=== PATIENT | female | born 1965 | race Two or more races ===

== ENCOUNTER → 2024-10-27 | Outpatient (CLI) | payer MEDICARE, MEDICAID, SELFPAY ==
--- NOTE | 2024-10-27 12:37 | XR_ITS ---
Examination: Thoracic spine 3 views Technique one AP lateral coned lateral upper dorsal spine 3 views Exam date and time: October 27, 2024 1300 hours INDICATIONS: Upper back pain 5 years. FINDINGS: Significant osteopenia Lower thoracic levoscoliosis 13 degrees No thoracic fracture Moderate diffuse thoracic degenerative disc disease IMPRESSION: Moderate diffuse thoracic degenerative disc disease
--- NOTE | 2024-10-27 12:37 | XR_ITS ---
EXAMINATION: Cervical spine, 5 views Technique: Cervical spine AP, AP odontoid, lateral, bilateral obliques, 5 views Exam date and time: October 27, 2024 at 1243 hours INDICATIONS: Neck pain beginning 5 years ago. FINDINGS: Straightening normal cervical doses No cervical fracture Moderate to advanced degenerative disc disease C4-C5, C5-C6, C6-C7 with mild to moderate bilateral neural foraminal stenosis at these levels primarily on the right side Intact odontoid IMPRESSION: Moderate to advanced degenerative disc disease C4-C5, C5-C6, C6-C7
== END | disposition home or self-care (01) ==
PROVIDERS: PCP Nurse Practitioner Family; Referring Provider Nurse Practitioner Family; Visit Provider Nurse Practitioner Family
DX: M50.321 Other cervical disc degeneration at C4-C5 level (principal); M51.34 Other intervertebral disc degeneration, thoracic region
CPT/HCPCS: 72050; 72070

== ENCOUNTER → 2025-02-01 | Outpatient (CLI) | payer MEDICARE, MEDICAID, SELFPAY ==
--- NOTE | 2025-02-01 07:30 | XR_ITS ---
Examination: MRI cervical spine without intravenous contrast Date and time of exam: February 01, 2025 0713 hours INDICATIONS: Neck pain radiating to the right arm numbness in the right arm 6 months Technique: Multiple axial and sagittal sections of the cervical spine to been obtained. T2 weighted sagittal sections, TR 3, 270, TE 117 T1-weighted sagittal sections, TR 500, TE 11 T1-weighted axial sections, TR 607, TE 12, axial sections TR 18, TE 27 and T2 weighted transverse sections, TR 3920, TE 122. Findings: Straightening normal cervical lordosis No cervical fracture Intact odontoid Moderate disc narrowing C4-C5, C5-C6 Diffuse cervical disc desiccation No localized enlargement cervical cord C2-C3 no disc protrusion C3-C4 no disc protrusion C4-C5 3 mm right paracentral disc bulge mild bilateral neural foraminal stenosis C5-C6 prominent right facet arthropathy with advanced right neural foraminal stenosis C6-C7 no disc protrusion C7-T1 no disc protrusion IMPRESSION: C5-C6 advanced right neural foraminal stenosis
== END | disposition home or self-care (01) ==
PROVIDERS: PCP Nurse Practitioner Family; Referring Provider Nurse Practitioner Family; Visit Provider Nurse Practitioner Family
DX: M48.02 Spinal stenosis, cervical region (principal)
CPT/HCPCS: 72141

== ENCOUNTER → 2025-07-25 | Outpatient (CLI) | payer MEDICARE, MEDICAID, SELFPAY ==
--- NOTE | 2025-07-25 | XR_ITS ---
Examination: Lumbar spine, 5 views Technique: Lumbar spine AP, lateral, coned lateral lower lumbar spine, bilateral obliques 5 views Exam date and time: July 25, 2025, 1148 hours INDICATIONS: Low back pain several years FINDINGS: Moderate osteopenia Moderate diffuse facet arthropathy Lumbarization of the fifth sacral segment Diffuse lumbar disc narrowing, advanced L4-L5, L5-S1 No lumbar fracture IMPRESSION: Diffuse lumbar degenerative disc disease advanced L4-L5, L5-S1
== END | disposition home or self-care (01) ==
PROVIDERS: PCP Nurse Practitioner Family; Referring Provider Nurse Practitioner Family; Visit Provider Nurse Practitioner Family
DX: M51.370 Other intervertebral disc degeneration, lumbosacral region with discogenic back pain only (principal); M51.360 Other intervertebral disc degeneration, lumbar region with discogenic back pain only
CPT/HCPCS: 72110

== ENCOUNTER → 2025-10-05 | Outpatient (CLI) | payer MEDICARE, MEDICAID, SELFPAY ==
--- NOTE | 2025-10-05 09:00 | XR_ITS ---
Examination: Screening digital mammography, bilateral Computer aided detection 3-D breast Tomosynthesis, bilateral Date and time of exam: October 05, 2025, 0904 hours, compared to mammograms dating to October 27, 2011 Indication: Screening Technique: Nonmagnified MLO, CC views of the breasts to been obtained, reconstructed from 3-D Tomosynthesis images. R2 computer aided detection program utilized for evaluation of suspicious masses and/or abnormal calcifications. 3-D Tomosynthesis images obtained. Findings: Scattered areas of fibroglandular density. Degenerating fibroadenoma right breast Stable nodule with breast biopsy marker outer left breast 6 mm nodular asymmetry left breast CC view, outer left breast, 5.3 cm from the nipple Impression: BI-RADS Category 0: Incomplete: Need additional imaging evaluation. 6 mm nodular asymmetry left breast cc view outer left breast 5.3 cm from the nipple, recommend follow-up spot tomographic views upper outer quadrant left breast as well as bilateral breast sonography to complete the work-up
== END | disposition home or self-care (01) ==
LOC: CDIM 08:32
PROVIDERS: Referring Provider Nurse Practitioner Family; Visit Provider Nurse Practitioner Family
DX: Z12.31 Encounter for screening mammogram for malignant neoplasm of breast (principal); N64.89 Other specified disorders of breast; R92.8 Other abnormal and inconclusive findings on diagnostic imaging of breast
CPT/HCPCS: 77063; 77067